=== PATIENT | female | born 1950 | race Caucasian/White ===

== ENCOUNTER → 2021-03-07 | Outpatient (CLI) | payer MEDICARE, OTHER ==
[~2021-03-07] MED LIST: ALBU8.5H8 INH; AMLO1CAP PO; BUPR-173 PO; CEFD300C37 PO; HYDR12.517 PO; LEVO25TA2 PO; METR500T PO; OMEP-110 PO; SERT50TA PO; potassium PO
== END | disposition home or self-care (01) ==
LOC: CFH 13:32
PROVIDERS: ATTEND Internal Medicine
DX: Z12.31 Encounter for screening mammogram for malignant neoplasm of breast (principal); M50.11 Cervical disc disorder with radiculopathy, high cervical region; R53.1 Weakness; M48.02 Spinal stenosis, cervical region
CPT/HCPCS: 72141; 77063; 77067